=== PATIENT | male | born 1990 | race Caucasian/White ===

== ENCOUNTER 2017-10-08 18:01 | Emergency (ER) | payer BC, OTHER ==
[2017-10-08] MEDS ORDERED: DIPHTH,PERTUSS(ACELL),TET VAC 0.5 ML VIAL IM ONE ×2 (18:12→18:18)
--- NOTE | 2017-10-08 18:16 | ERNOTE ---
Medical Problem HPI - General Chief Complaint: Foreign Body Time Seen by Provider: 10/08/17 18:04 Source: patient Exam Limitations: no limitations - Immun/Allergies/Home Medications Immunizations: IMMUNIZATION HX Immunizations Up to Date No History of Influenza Vaccine No Hx Pneumococcal Vaccination No Allergies/Adverse Reactions: Allergies codeine Allergy (Unknown, Verified 02/20/14 23:24) mother states altered mental status as infant. 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 Patient is able to cut a board off however still has the end of the nail embedded into the hand and he states it's an old nail that is somewhat jose antonio. Timing: constant Severity: moderate Review of Systems - Review of Systems Constitutional: Present: See HPI EYE: Present: no symptoms reported ENT: Present: no symptoms reported Respiratory: Present: no symptoms reported Cardiology: Present: no symptoms reported Gastrointestinal/Abdominal: Present: no symptoms reported Genitourinary: Present: no symptoms reported Musculoskeletal: Present: See HPI Skin: Present: no symptoms reported Neurological: Present: no symptoms reported Endocrine: Present: no symptoms reported Hematologic/Lymphatic: Present: no symptoms reported Psych: Present: no symptoms reported - Patient's Past Medical History Patient History - Medical: No pertinent hx Patient History - Cardiac/Respiratory: No pertinent hx Patient History - Cancer: No Hx of Cancer Patient History - Surgical Procedures: Appendectomy Patient History - Other: None - Social History Living Situations: home Abuse History: No History of abuse Psych History: No pertinent hx Smoking Status: Former smoker Have you smoked in the past 12 months: No Do you dip or chew tobacco: No Patient requests Smoking Cessation Consult: No Initiate information on Smoking Cessation: No Alcohol Use: none Drug Use: none - Immunizations Immunizations Up to Date: No Hx Pneumococcal Vaccination: No History of Influenza Vaccine: No Physical Exam - Physical Exam General Appearance: Present: wd/wn, alert, moderate distress Eye Exam: Normal inspection: bilateral, PERRL: bilateral Ears, Nose, Throat: Present: normal ENT inspection, H, normal pharynx Neck: Present: normal inspection, nontender Respiratory: Present: no respiratory distress, normal breath sounds, no accessory muscle use, chest nontender, lungs clear Cardiovascular/Chest: Present: regular rate, rhythm, no murmur, normal peripheral pulses Gastrointestinal/Abdominal: Present: normal bowel sounds, nontender, nondistended, soft, no organomegaly Rectal Exam: Present: deferred Back Exam: Present: normal inspection, normal range of motion Extremity Exam: Present: normal range of motion, no edema, other - distal half the nail still embedded into the right hand in the thumb web with greater approximately to the second metacarpal Neurological Exam: Present: alert, oriented, normal mood/affect Skin Exam: Present: normal color, warm/dry Lymphatic Exam: Present: no adenopathy ED Progress - Vital Signs Patient's Vital Signs:: I have reviewed the patient's vital signs. Vital Signs: Vital Signs 10/08/17 18:04 Temperature 36.9 C Pulse Rate 101 H Respiratory 14 Rate Blood Pressure 150/99 O2 Sat by Pulse 99 Oximetry - X-Ray X-Ray #1 X-Ray: hand Interpretation: Reviewed by me - Progress/Reassessment Chief Complaint: Foreign Body Procedures How removed: Other - by prescription Complications: Pt jesse procedure well Comments: Nail was easily removed without difficulty however was jose antonio and patient will need to have his Adacel which we have ordered and he'll need to be on antibiotics, x-rays pending. Plan - Plan Plan: Patient was given an Adacel and he will be started on oral antibiotics. Will follow-up with his family physician as needed Departure Clinical Impression: Foreign body (FB) in soft tissue - Departure Disposition: Home self-care Condition: Good Instructions: Puncture Wound, [id number] Additional Instructions: See your family physician as needed, return if the hand starts becoming reddened or swollen or you get a fever Prescriptions: Sulfamethoxazole/Trimethoprim [Bactrim Ds] 1 tab PO BID #20 tab
[2017-10-08] MEDS ORDERED: SULFAMETHOXAZOLE/TRIMETHOPRIM 1 TAB TABLET PO ONE (18:23)
[2017-10-08] MEDS ORDERED: SULFAMETHOXAZOLE/TRIMETHOPRIM 1 TAB TABLET ONE (18:29)
[2017-10-08 18:41] VITALS: BP 136/101
== END 2017-10-08 18:30 | disposition home or self-care (01) ==
LOC: ER 18:01
DX: M79.5 Residual foreign body in soft tissue (principal); S61.441A Puncture wound with foreign body of right hand, initial encounter; W45.0XXA Nail entering through skin, initial encounter; Y93.H3 Activity, building and construction; Y99.9 Unspecified external cause status; Z23 Encounter for immunization